=== PATIENT | female | born 1980 | race Caucasian/White ===

== ENCOUNTER 2016-11-09 10:55 | Day surgery (SDC) | payer OTHER ==
[~2016-11-09 10:55] MED LIST: DICY20TA10 PO; FLUT15.88 NS; IBUP-1827 PO; OMEP40CA36 PO; PRAZ5CAP3 PO; QUE9 PO; SALS750T16 PO; SERT100T9 PO; Sodium Chloride LOK Flush 10 mL Syringe IV PRN; TRAZ150T72 PO; fentaNYL-PF 50 mCg/mL 2 mL Inj IVPUSH PRN
[2016-11-09] MEDS ORDERED: METF500T4 PO (12:43)
[2016-11-09 12:50] VITALS: BP 123/70; PULSE 70; RESP 16; O2SAT 98
[2016-11-09] MEDS: 0.9% Sodium Chloride 1,000 ML IV SCH ×2 (12:51→13:47)
[2016-11-09 13:55] VITALS: BP 115/63; PULSE 69; RESP 16; O2SAT 98
[2016-11-09 14:00] VITALS: BP 110/65; PULSE 71; RESP 16; O2SAT 97
[2016-11-09 14:10] VITALS: BP 109/62; PULSE 57; RESP 16; O2SAT 97
--- NOTE | 2016-11-10 02:14 | ENDO ---
[address] [address] ENDOSCOPY PROCEDURE PATIENT: LEANDRO NICE : 1980 MR#: [id number] ADMIT: 11/09/2016 JOB ID: [id number] PROCEDURE: Esophagogastroduodenoscopy. INDICATION: Gastroesophageal reflux. Patient's ASA classification is 2. Mallampati score is 2. MEDICATIONS: 1. Versed at 6 mg. 2. Fentanyl 150 mcg. INSTRUMENT USED: GIF H 190. PROCEDURE Details: After informed consent was obtained, the patient was brought to the GI suite, where she was placed on oxygen via nasal cannula and monitored with continuous pulse oximeter, telemetry and blood pressure monitoring. A time-out was performed. Then, she was placed in a left lateral decubitus position and medications were administered for sedation. A bite block was placed. The standard esophagogastroduodenoscopy scope was inserted through the bite block and advanced under direct visualization to the second portion of duodenum without difficulty. FINDINGS: 1. Normal appearing duodenal bulb, first and second portion. 2. Normal appearing pylorus. In the antrum and body of the stomach there was mild erythema suggestive of mild gastritis. Multiple random biopsies were obtained. Retroflexed views in the gastric body revealed a normal appearing cardia and fundus. 3. The gastroesophageal junction was at approximately 38 cm and was slightly irregular. Multiple biopsies were obtained. The remainder of the esophagus was unremarkable. IMPRESSION: 1. Mild gastritis. 2. Mild esophagitis. RECOMMENDATIONS: 1. Continue PPI. 2. Await biopsy results. 3. Proceed to colonoscopy. PROCEDURE PERFORMED: Colonoscopy. INDICATION: Rectal bleeding. Please see above for ASA classification, Mallampati score, and medications. INSTRUMENT USED: PCF H 180 AL. Prep quality was fair. PROCEDURE DETAILS: After informed consent was obtained, the patient was brought into the GI suite, where she was placed on oxygen via nasal cannula and monitored with continuous pulse oximeter, telemetry and blood pressure monitoring. A time-out was performed. Then, she was placed in a left lateral decubitus position and medications were administered for sedation. A digital rectal exam was performed and was unremarkable. The colonoscope was then inserted into the rectum and advanced under direct visualization to the terminal ileum which was identified by the presence of the ileocecal valve and villous appearing mucosa of the terminal ileum. Once the terminal ileum was reached, the colonoscope was withdrawn back into the rectum. Mucosa and lumen were examined. In the rectum, retroflexion was performed. Following retroflexion, remaining air in the rectum was suctioned, and procedure was completed. FINDINGS: Moderate size internal hemorrhoids were noted on retroflexion. IMPRESSION: Internal hemorrhoids, suspect the etiology for rectal bleeding. Otherwise normal exam from rectum to cecum. RECOMMENDATIONS: Stool softeners and consider trial of Anusol HC suppositories if bleeding restarts. COMPLICATIONS: None. ESTIMATED BLOOD LOSS: Zero.
--- NOTE | 2016-11-14 16:19 | PATH ---
SURGICAL PATHOLOGY Attending Physician:Cisco Rothman CASE STATUS: Signed Out PATIENT NAME: LEANDRO NICE PID: [id number] : 1980 DATE COLLECTED:11/09/2016 00:00 SPECIMEN: 1: Gastric, Biopsy 2: Esophagus, Biopsy CLINICAL HISTORY: 1). GASTRIC BIOPSY 2). DISTAL ESOPHAGUS BIOPSY FINAL DIAGNOSIS: 1. Gastric Biopsy: Portions of gastric body-type mucosa with no diagnostic abnormality. Negative for Helicobacter organisms by H&E stain. Negative for intestinal metaplasia, dysplasia, and malignancy. 2. Distal Esophagus, Biopsy: Squamocolumnar junctional mucosa with no diagnostic abnormality. Negative for intestinal metaplasia, dysplasia and malignancy. ICD10: K29.7 GROSS DESCRIPTION: The specimen is received in two formalin filled containers labeled with the patient's name. 1). The specimen is sublabeled "gastric" and consists of 2 portions of tissue which aggregate to 0.4 x 0.3 x 0.2 CM. The specimen is entirely submitted in cassette 1A. 2). The specimen is sublabeled "distal esophagus" and consists of 2 portions of tissue which aggregate to 0.3 x 0.3 x 0.2 CM. The specimen is entirely submitted in cassette 2A. 11/13/2016 [facility] ICD-9 CODES: CPT CODES: 1: 33055 2: 11446 Electronically Signed Out Argelia Lorenzo MD [facility] Pathology [facility], [place] [address] Technical component performed at [facility], [address] [place] [address] Ave[address], [address]
== END 2016-11-09 23:59 | disposition home or self-care (01) ==
LOC: END 10:55
PROVIDERS: ATTEND Internal Medicine Gastroenterology
DX: K21.9 Gastro-esophageal reflux disease without esophagitis (principal); K92.1 Melena; K64.8 Other hemorrhoids; K29.70 Gastritis, unspecified, without bleeding; K20.9 Esophagitis, unspecified
CPT/HCPCS: 43239; 45378; 88305; 99153; G0500; J2250; J3010; J7030